=== PATIENT | male | born 1940 | race Caucasian/White ===

== ENCOUNTER 2019-01-06 14:17 | Emergency (ER) | payer MEDICARE, OTHER, SELFPAY ==
[2019-01-06 14:19] VITALS: BP 146/69; PULSE 72; RESP 18; TEMP 36.4; O2SAT 95; BMI 26.5
--- NOTE | 2019-01-06 15:27 | ED.VISSUMM ---
- ER Visit Summary Date of Service: 01/06/19 Chief Complaint: Knee laceration History of Present Illness: The patient is a 78 M who presents with laceration to his left knee that occurred today. Patient states he [place] when he tripped and fell. Patient states she landed on the log. Patient states the bleeding stopped after several minutes of pressure. Patient states that he had does have pain in his left knee that is stinging. Patient denies any paresthesias or weakness. Patient states he was able to ambulate after the fall. Patient is unsure of his last tetanus. Physical Examination: Vital signs are stable. Patient is afebrile. Patient is in no acute distress. Musculoskeletal exam reveals tenderness over the left knee. There is no deformity. Range of motion was limited in all motions of the left knee secondary to pain. There is patient an approximately 8 cm V-shaped laceration over the anterior aspect of the left knee. There is moderate gapping of the wound margins. Extensor mechanism is intact. Strength is 5/5 bilaterally. There are no sensory deficits noted. Posterior tibial pulses are equal bilaterally. Test Results: X-rays of the left knee were obtained. There is no acute fracture. Emergency Department Course and Treatment: Patient was given a tetanus booster. The wound was cleaned and irrigated with copious amounts normal saline. The wound was anesthetized 1% plain lidocaine locally. The wound was closed with 3 simple interrupted #4-0 Vicryl subcutaneous sutures and 6 interrupted #5-0 Ethilon horizontal mattress sutures under sterile technique. Gauze dressing was applied. Patient was not given bacitracin due to his allergy. Patient was instructed to keep the wound clean and dry. Patient was instructed to follow-up with his primary care physician in 5 to 7 days. Patient and family understood and were agreeable with the plan. All questions were answered. Disposition: Discharge home Impression: Left knee laceration This note was generated with [employer] dictation software. It may contain incorrect words, spelling, and punctuation that were not noted in review of the chart prior to signing ED Disposition - Plan for ED Patient: Disposition: Home or Assisted Living Diagnosis: Laceration of left knee without complication Instructions: LACERATION, Extrem (Suture, Staple or Tape) Referrals: NOT,DEFINED [NON-STAFF] - 7 Days for suture removal
--- NOTE | 2019-01-06 16:05 | RAD_ITS ---
STUDY: X-RAY - LEFT KNEE REASON FOR EXAM: Male, 78 years old. Laceration TECHNIQUE: 2 view(s) of the knee. COMPARISON: None. FINDINGS: Normal visualized distal femur. Normal visualized proximal tibia and fibula. Normal proximal tibiofibular articulation. Status post knee arthroplasty. The prosthesis appears located. No ostial lysis to suggest loosening.. The soft tissue structures are unremarkable. RAD/Knee 1 or 2 Views IMPRESSION: 1. No acute fracture, dislocation, radiopaque foreign body. 2. Status post knee arthroplasty. Electronically Signed: Marco Antonio Wall MD at 16:16 EDT Tel , Service support ,
[2019-01-06] MEDS: Diphth,Pertuss(Acell),Tet Vac 0.5 ML Vial IM (17:42)
[2019-01-06 17:57] VITALS: PULSE 77; RESP 16; O2SAT 97
== END 2019-01-06 17:59 | disposition home or self-care (01) ==
PROVIDERS: Emergency Provider Emergency Medicine
DX: S81.012A Laceration without foreign body, left knee, initial encounter (principal); W01.0XXA Fall on same level from slipping, tripping and stumbling without subsequent striking against object, initial encounter; Y93.01 Activity, walking, marching and hiking; Z23 Encounter for immunization; M54.9 Dorsalgia, unspecified; G89.29 Other chronic pain; E78.00 Pure hypercholesterolemia, unspecified; E03.9 Hypothyroidism, unspecified
CPT/HCPCS: 12004; 73560; 73564; 90471; 90715; 99284